=== PATIENT | female | born 1980 | race African-American/Black ===

== ENCOUNTER 2017-07-10 23:49 | Inpatient (IN) | payer MEDICAID ==
[~2017-07-10] VITALS: Ht 162.6 cm; Wt 67.1 kg
[2017-07-11] MEDS ORDERED: HYDR25TA PO (00:14)
[2017-07-11] MEDS ORDERED: LORAZEPAM 2MG/ML CPJ IV ONE (00:30)
[2017-07-11] MEDS ORDERED: ASPIRIN 81MG TABLET PO ONE (00:30)
[2017-07-11] MEDS ORDERED: SODIUM CHLORIDE 0.9% 1000ML BAG (SEPSIS BOLUS) IV ONE (00:30)
[2017-07-11] MEDS ORDERED: MAGNESIUM 2 G PREMIX 50 ML IV STA (00:36)
[2017-07-11] MEDS ORDERED: METHYLPREDNISOLONE SOD SUCC 125 MG/2 ML VIAL IV STA (00:36)
[2017-07-11] MEDS ORDERED: IPRATROPIUM BROMIDE (0.02%) 0.5MG/2.5ML NEB HHN STA (00:36)
[2017-07-11] MEDS ORDERED: AZITHROMYCIN 500 MG TABLET PO STA (00:36)
[2017-07-11] MEDS ORDERED: ALBUTEROL (0.083%) 2.5MG/3ML NEB HHN STA (00:36)
[2017-07-11 00:56] LABS: HEMATOCRIT. 43.8 % (36.0-48.0); HEMOGLOBIN. 14.5 g/dL (12.0-16.0); MEAN CORPUSCULAR HEMOGLOBIN 27.8 pg (28.0-32.0); MEAN CORPUSCULAR VOLUME 84.1 fL (81.0-99.0); MEAN PLATELET VOLUME 7.4 fl (7.4-10.4); PLATELET 366 x1000/uL (130-400); RED BLOOD CELL COUNT 5.21 mill/uL (4.2-5.4); RED CELL DISTRIBUTION WIDTH 14.8 % (11.6-14.6)
[2017-07-11 01:02] LABS: HCG SCREEN NEGATIVE
[2017-07-11 01:05] LABS: D-DIMER 0.31 mg/L FEU (<0.50); INR 1.2
[2017-07-11 01:12] LABS: CARBON DIOXIDE 25 mEq/L (21-32); CHLORIDE 99 mEq/L (98-107); ETHANOL BLOOD < 10 mg/dL; TROPONIN I 0.05 ng/mL (0.00-0.04)
[2017-07-11 02:08] LABS: GLUCOSE URINE NEGATIVE (NEGATIVE); KETONES URINE 2+ (NEGATIVE); LEUKOCYTE ESTERASE URINE 2+ (NEGATIVE); NITRITE URINE POSITIVE (NEGATIVE); OCCULT BLOOD URINE 3+ (NEGATIVE); PROTEIN URINE 2+ (NEGATIVE); SPECIFIC GRAVITY URINE 1.015 (1.005-1.030)
[2017-07-11] MEDS ORDERED: SODIUM CHLORIDE 0.9% 1000ML BAG (SEPSIS BOLUS) IV NR (02:15)
[2017-07-11] MEDS ORDERED: KCL 20MEQ/100ML PREMIX 100 ML IV NR (02:15)
[2017-07-11 02:23] LABS: *BARBITURATES SCREEN URINE NEGATIVE (NEGATIVE); *BENZODIAZEPINES SCREEN URINE NEGATIVE (NEGATIVE); COLOR URINE RED (YELLOW); METHADONE URINE SCREEN NEGATIVE (NEGATIVE); OPIATES URINE SCREEN NEGATIVE (NEGATIVE); PHENCYCLIDINE URINE SCREEN NEGATIVE (NEGATIVE)
[2017-07-11 02:24] LABS: CLARITY URINE TURBID (CLEAR)
[2017-07-11 02:51] LABS: *AMPHETAMINES SCREEN URINE PRESUMTIVE POSITIVE (NEGATIVE); *COCAINE SCREEN URINE PRESUMTIVE POSITIVE (NEGATIVE); CANNABINOID URINE SCREEN PRESUMTIVE POSITIVE (NEGATIVE)
[2017-07-11 07:23] LABS: PLATELET ESTIMATE NORMAL
[2017-07-11 09:43] VITALS: BP 133/93
[2017-07-11 10:00] VITALS: BP 133/93
[2017-07-11] MEDS ORDERED: CLONIDINE 0.1MG TABLET PO PRN (10:15)
[2017-07-11] MEDS ORDERED: IPRATROPIUM/ALBUTEROL 0.5-3(2.5)MG/3ML NEB HHN PRN (10:15)
[2017-07-11] MEDS: HYDROCHLOROTHIAZIDE 25MG TABLET PO SCH (10:41)
[2017-07-11 12:54] VITALS: BP 130/98
[2017-07-11] MEDS: IPRATROPIUM/ALBUTEROL 0.5-3(2.5)MG/3ML NEB HHN SCH ×3 (14:00→21:40)
[2017-07-11 16:38] VITALS: BP 168/79
[2017-07-11] MEDS: METHYLPREDNISOLONE SOD SUCC 40 MG/ML VIAL IV SCH ×2 (17:38→21:35)
[2017-07-11] MEDS: NICOTINE 21MG PATCH TD SCH (18:29)
[2017-07-11] MEDS ORDERED: FLUT1DIS3 IH (18:48)
[2017-07-11] MEDS ORDERED: P50 PO (18:48)
[2017-07-11] MEDS ORDERED: ALBU2.5V13 IH (18:48)
[2017-07-11 20:00] VITALS: BP 148/108
[2017-07-11 20:31] LABS: HEMATOCRIT. 36.5 % (36.0-48.0); HEMOGLOBIN. 12.2 g/dL (12.0-16.0); MEAN CORPUSCULAR HEMOGLOBIN 27.5 pg (28.0-32.0); MEAN CORPUSCULAR VOLUME 82.5 fL (81.0-99.0); MEAN PLATELET VOLUME 7.8 fl (7.4-10.4); PLATELET 329 x1000/uL (130-400); RED BLOOD CELL COUNT 4.42 mill/uL (4.2-5.4); RED CELL DISTRIBUTION WIDTH 14.8 % (11.6-14.6)
[2017-07-11 20:43] LABS: CARBON DIOXIDE 25 mEq/L (21-32); CHLORIDE 101 mEq/L (98-107)
[2017-07-11] MEDS: CEFTRIAXONE 1 G PREMIX 50 ML IV SCH (21:35)
[2017-07-11] MEDS: GUAIFENESIN 600MG ER TABLET PO SCH (21:35)
[2017-07-11] MEDS: BUDESONIDE 0.5MG/2ML NEB HHN SCH (21:45)
[2017-07-12] MEDS: IPRATROPIUM/ALBUTEROL 0.5-3(2.5)MG/3ML NEB HHN SCH ×4 (00:29→21:11)
[2017-07-12 00:30] VITALS: BP 148/97
[2017-07-12 04:00] VITALS: BP 120/85
[2017-07-12] MEDS: METHYLPREDNISOLONE SOD SUCC 40 MG/ML VIAL IV SCH ×3 (05:31→21:59)
[2017-07-12 06:05] LABS: HEMOGLOBIN. 12.6 g/dL (12.0-16.0); MEAN CORPUSCULAR VOLUME 84.3 fL (81.0-99.0); MEAN PLATELET VOLUME 7.8 fl (7.4-10.4); PLATELET 329 x1000/uL (130-400); RED BLOOD CELL COUNT 4.51 mill/uL (4.2-5.4); RED CELL DISTRIBUTION WIDTH 14.7 % (11.6-14.6)
[2017-07-12 06:53] LABS: CARBON DIOXIDE 26 mEq/L (21-32); CHLORIDE 100 mEq/L (98-107)
[2017-07-12] MEDS: BUDESONIDE 0.5MG/2ML NEB HHN SCH ×2 (07:28→21:12)
[2017-07-12 08:00] VITALS: BP 138/97
[2017-07-12] MEDS: GUAIFENESIN 600MG ER TABLET PO SCH ×2 (09:43→21:59)
[2017-07-12] MEDS: HYDROCHLOROTHIAZIDE 25MG TABLET PO SCH (09:43)
[2017-07-12] MEDS: NICOTINE 21MG PATCH TD SCH (10:45)
[2017-07-12 12:00] VITALS: BP 124/79
[2017-07-12 12:09] LABS: PLATELET ESTIMATE NORMAL
[2017-07-12 13:57] LABS: PLATELET ESTIMATE NORMAL
[2017-07-12 16:00] VITALS: BP 145/99
[2017-07-12] MEDS: CEFTRIAXONE 1 G PREMIX 50 ML IV SCH (18:04)
[2017-07-12 20:00] VITALS: BP 153/92
[2017-07-12] MEDS ORDERED: POTASSIUM CHLORIDE 20MEQ TABLET SR PO NR (21:00)
[2017-07-13] VITALS: BP 126/94
[2017-07-13] MEDS: IPRATROPIUM/ALBUTEROL 0.5-3(2.5)MG/3ML NEB HHN SCH (01:23)
== END 2017-07-13 05:00 | disposition left against medical advice (07) | DRG 816 ==
LOC: ER 07-11 01:00 → 6WST 07-11 01:51
PROVIDERS: ADMIT Family Medicine; ATTEND Family Medicine
DX: T40.5X1A Poisoning by cocaine, accidental (unintentional), initial encounter (principal); J96.00 Acute respiratory failure, unspecified whether with hypoxia or hypercapnia; N17.1 Acute kidney failure with acute cortical necrosis; A41.9 Sepsis, unspecified organism; E87.2 Acidosis; J45.901 Unspecified asthma with (acute) exacerbation; I10 Essential (primary) hypertension; Z53.21 Procedure and treatment not carried out due to patient leaving prior to being seen by health care provider; F14.10 Cocaine abuse, uncomplicated; E87.6 Hypokalemia; N39.0 Urinary tract infection, site not specified; F15.10 Other stimulant abuse, uncomplicated; F17.210 Nicotine dependence, cigarettes, uncomplicated; Z59.0 Homelessness; Z79.51 Long term (current) use of inhaled steroids; Z79.899 Other long term (current) drug therapy
CPT/HCPCS: 36415; 71010; 80048; 80053; 80305; 81001; 83605; 83690; 84484; 84703; 85025; 85379; 85610; 85730; 87077; 87086; 87804; 93005; 93306; 94640; 94664; 96361; 96365; 96375; 99285; C1893; G0482; J0696; J2060; J2920; J2930; J3475; J3480; J7030; J7040; J7620; J7626

== ENCOUNTER 2018-04-18 21:05 | Emergency (ER) | payer MEDICAID ==
[~2018-04-18] VITALS: Ht 162.6 cm; Wt 62.0 kg
[~2018-04-18 21:05] MED LIST: ALBU2.5V13 IH; FLUT1DIS3 IH; HYDR25TA PO; P50 PO
[2018-04-19] MEDS ORDERED: IPRATROPIUM BROMIDE (0.02%) 0.5MG/2.5ML NEB HHN STA ×2 (00:51→02:13)
[2018-04-19] MEDS ORDERED: PREDNISONE 20MG TABLET PO STA (00:51)
[2018-04-19] MEDS ORDERED: ALBUTEROL (0.083%) 2.5MG/3ML NEB HHN STA ×2 (00:51→02:13)
[2018-04-19] MEDS ORDERED: ACETAMINOPHEN 325MG TABLET PO ONE (01:00)
[2018-04-19 05:19] VITALS: BP 118/67
== END 2018-04-19 05:58 | disposition home or self-care (01) ==
LOC: ER 21:43
DX: J18.9 Pneumonia, unspecified organism (principal); J45.901 Unspecified asthma with (acute) exacerbation; I10 Essential (primary) hypertension; F17.200 Nicotine dependence, unspecified, uncomplicated
CPT/HCPCS: 71045; 81025; 94640; 99284; J7512; J7611; Z7610

== ENCOUNTER 2019-02-04 16:21 | Emergency (ER) | payer MEDICAID ==
[~2019-02-04] VITALS: Ht 167.6 cm; Wt 80.0 kg
[2019-02-04] MEDS ORDERED: SODIUM CHLORIDE 0.9% 1,000 ML IV ONE ×2 (17:01→19:01)
[2019-02-04] MEDS ORDERED: MORPHINE SULFATE 4 MG/ML CPJ (NOT FOR IM USE) IV STA (17:01)
[2019-02-04] MEDS ORDERED: ONDANSETRON HCL 4MG/2ML INJ IV STA (17:01)
[2019-02-04 17:23] LABS: CHLORIDE 106 mEq/L (98-107)
[2019-02-04 17:28] LABS: D-DIMER 0.23 mg/L FEU (<0.50); ETHANOL BLOOD < 10 mg/dL; INR 1.1; PARTIAL THROMBOPLASTIN TIME 34.4 sec (23.4-31.0); PROTHROMBIN TIME 11.3 sec (9.6-11.0)
[2019-02-04 17:38] LABS: BASOPHILS % 0.6 % (0.0-2.0); EOSINOPHILS % 0.2 % (0.0-5.0); HCG SCREEN NEGATIVE; HEMATOCRIT. 34.5 % (36.0-48.0); HEMOGLOBIN. 11.4 g/dL (12.0-16.0); LYMPHOCYTES % 9.4 % (20.0-50.0); MEAN CORPUSCULAR VOLUME 84.4 fL (81.0-99.0); MEAN PLATELET VOLUME 6.8 fl (7.4-10.4); MONOCYTES % 5.5 % (2.0-8.0); NEUTROPHILS % 84.3 % (40.0-76.0); PLATELET 428 x1000/uL (130-400); RED BLOOD CELL COUNT 4.09 mill/uL (4.2-5.4); RED CELL DISTRIBUTION WIDTH 14.3 % (11.6-14.6)
[2019-02-04 18:28] LABS: CLARITY URINE CLEAR (CLEAR); COLOR URINE YELLOW (YELLOW); KETONES URINE TRACE (NEGATIVE); LEUKOCYTE ESTERASE URINE TRACE (NEGATIVE); NITRITE URINE NEGATIVE (NEGATIVE); OCCULT BLOOD URINE NEGATIVE (NEGATIVE); PROTEIN URINE NEGATIVE (NEGATIVE); SPECIFIC GRAVITY URINE 1.019 (1.005-1.030)
[2019-02-04 18:33] LABS: *COCAINE SCREEN URINE NEGATIVE (NEGATIVE); METHADONE URINE SCREEN NEGATIVE (NEGATIVE); OPIATES URINE SCREEN NEGATIVE (NEGATIVE); PHENCYCLIDINE URINE SCREEN NEGATIVE (NEGATIVE)
[2019-02-04 18:34] LABS: *BARBITURATES SCREEN URINE NEGATIVE (NEGATIVE); *BENZODIAZEPINES SCREEN URINE NEGATIVE (NEGATIVE)
[2019-02-04 18:42] LABS: *AMPHETAMINES SCREEN URINE PRESUMTIVE POSITIVE (NEGATIVE)
[2019-02-04 18:43] LABS: CANNABINOID URINE SCREEN PRESUMTIVE POSITIVE (NEGATIVE)
[2019-02-04] MEDS ORDERED: LEVOFLOXACIN 750MG PREMIX 150 ML IV ONE (19:00)
[2019-02-04] MEDS ORDERED: KETOROLAC 30MG/ML VIAL IV ONE (19:00)
[2019-02-04] MEDS ORDERED: CLONIDINE 0.2MG TABLET PO ONE (20:00)
[2019-02-04 23:04] VITALS: BP 136/92
== END 2019-02-04 23:09 | disposition home or self-care (01) ==
LOC: ER 16:33
DX: J18.9 Pneumonia, unspecified organism (principal); F15.10 Other stimulant abuse, uncomplicated; R10.9 Unspecified abdominal pain; I10 Essential (primary) hypertension; J45.909 Unspecified asthma, uncomplicated
CPT/HCPCS: 36415; 71045; 74176; 80053; 80305; 80320; 81003; 81025; 83605; 83690; 83880; 84484; 84703; 85025; 85379; 85610; 85730; 87040; 87086; 96365; 96375; 99284; J1885; J1956; J2270; J2405; J7030; Z7610; G0480